=== PATIENT | male | born 1990 | race Caucasian/White ===

== ENCOUNTER 2023-08-12 22:10 | Emergency (ER) | payer BC ==
[~2023-08-12] VITALS: Ht 175.3 cm; Wt 74.8 kg
[2023-08-12 22:50] VITALS: BP 128/87; TEMP 97.9
[2023-08-12 23:08] VITALS: O2SAT 98
== END 2023-08-12 23:09 | disposition home or self-care (01) ==
LOC: ER 22:26
DX: K12.0 Recurrent oral aphthae (principal)